=== PATIENT | female | born 1960 | race Caucasian/White ===

== ENCOUNTER 2022-12-20 14:19 | Emergency (ER) | payer BC ==
[~2022-12-20] VITALS: Ht 167.6 cm; Wt 52.2 kg
[2022-12-20] VITALS (22 sets, daily range): BP systolic 166–217; BP diastolic 86–116
[2022-12-20 15:27] LABS: BASO% 0.4 % (0-3); EOS% 0.2 % (0-8); HEMATOCRIT 39.9 % (37.0-47.0); HEMOGLOBIN 12.5 g/dl (12.0-16.0); IMMATURE GRANULOCYTES 0.2 % (0.0-5.0); MEAN CELL VOLUME 81.3 fL CALC (80.0-100.0); MEAN CORPUSCULAR HGB 25.5 pG CALC (26.0-32.0); MEAN CORPUSCULAR HGB CONC 31.3 g/dL CAL (32.0-36.0); MONO% 1.5 % (2-13); NEUT# 4.95 thou/uL (2.00-7.15); NEUT% 89.7 % (42-76); RED BLOOD COUNT 4.91 mill/uL (4.20-5.60); RED CELL DISTRI WIDTH 15.2 % (11.5-15.5)
[2022-12-20 15:39] LABS: ALBUMIN 4.3 g/dL (3.2-5.0); ALKALINE PHOSPHATASE 773 u/l (38-126); AMYLASE 98 u/l (30-110); ANION GAP 15 (6-22 (CALC)); BUN 21 mg/dL (8-23); BUN/CREATININE RATIO 14 (12-20 (CALC)); CARBON DIOXIDE 21 mmol/l (22-30); CHLORIDE 109 mmol/l (95-108); CREATININE 1.5 mg/dL (0.5-1.0); GFR FOR AFR.AMER. 42 ML/MIN (>=60 (CALC)); GFR OTHER RACES 35 ML/MIN (>=60 (CALC)); LIPASE 55 u/l (23-300); MAGNESIUM 1.7 mg/dL (1.6-2.3); POTASSIUM 3.5 mmol/l (3.5-5.1); SGOT/AST 168 u/l (9-36); SODIUM 141 mmol/l (137-146); TOTAL PROTEIN 7.5 g/dL (6.3-8.2)
[2022-12-20] MEDS ORDERED: METOPROLOL TART50 MG PO (16:05)
[2022-12-20] MEDS ORDERED: LEVOTHYROXIN50 MCG PO (16:05)
[2022-12-20] MEDS ORDERED: TRESIBA FL100 UNIT/M (16:06)
[2022-12-20] MEDS ORDERED: NOVOLOG100 UNIT (16:10)
[2022-12-20] MEDS ORDERED: SINGULAIR10 MG PO (16:11)
[2022-12-20] MEDS ORDERED: DILAUDID4 MG PO (16:11)
[2022-12-20] MEDS ORDERED: CREON12000 UNT PO (16:13)
[2022-12-20] MEDS ORDERED: PROCHLORPERAZINE5 M1 (16:14)
[2022-12-20] MEDS ORDERED: ZOFRAN4 MG/TAB PO (16:15)
[2022-12-20] MEDS ORDERED: AFINITOR10 MG PO (16:16)
[2022-12-20] MEDS ORDERED: ALPRAZOLAM0.5 M2 PO (16:18)
[2022-12-20] MEDS ORDERED: CREON1 CAP (16:19)
[2022-12-20] MEDS ORDERED: BD PEN NEEDL32 GX4MM (16:19)
[2022-12-20] MEDS ORDERED: FUROSEMIDE20 MG PO (16:20)
[2022-12-20] MEDS ORDERED: LEVOTHYROXIN50 MC1 PO (16:20)
[2022-12-20] MEDS ORDERED: METHOCARBAMOL500 MG PO (16:20)
[2022-12-20 18:08] LABS: URINE BILIRUBIN - DIPSTICK NEGATIVE (NEGATIVE); URINE BLOOD DIPSTICK MODERATE (NEGATIVE); URINE COLOR YELLOW; URINE GLUCOSE - DIPSTICK NEGATIVE (NEGATIVE); URINE KETONE 15 mg/dL (NEGATIVE); URINE LEUK ESTERASE NEGATIVE (NEGATIVE); URINE NITRITE - DIPSTICK NEGATIVE (Negative); URINE PH 5.5 (4.5-8.0); URINE PROTEIN - DIPSTICK TRACE mg/dL (NEG-TRACE); URINE SPECIFIC GRAVITY 1.025; URINE UROBILINOGEN - DIPSTICK 0.2 E.U./dL (0.2)
[2022-12-20 18:12] LABS: URINE SQUAMOUS EPITHELIAL CELL RARE EPI/hpf (0-FEW); URINE WBC 0-2 WBC/hpf (0-5)
[2022-12-21 00:05] VITALS: BP 190/89
== END 2022-12-21 00:07 | disposition short-term general hospital (02) | DRG 392 ==
LOC: ED 14:19
PROVIDERS: Nurse Practitioner
DX: R11.2 Nausea with vomiting, unspecified (principal); K83.8 Other specified diseases of biliary tract; C25.9 Malignant neoplasm of pancreas, unspecified; C22.9 Malignant neoplasm of liver, not specified as primary or secondary; Z79.899 Other long term (current) drug therapy
CPT/HCPCS: Q9967